=== PATIENT | female | born 1985 | race Caucasian/White ===

== ENCOUNTER → 2019-07-25 | Outpatient (CLI) | payer OTHER, SELFPAY ==
[2017-02-23 16:00] VITALS: BMI 23.7
[2019-07-31 18:10] LABS: HPV APTIMA, High Risk Negative (Negative)
== END | disposition home or self-care (01) ==
LOC: LABSPEC 14:49
PROVIDERS: Referring Provider Obstetrics & Gynecology; Visit Provider Obstetrics & Gynecology
DX: Z12.4 Encounter for screening for malignant neoplasm of cervix (principal)
CPT/HCPCS: 87624; 88175; G0145

== ENCOUNTER → 2021-03-14 09:48 | Outpatient (CLI) | payer OTHER, SELFPAY ==
[2021-03-14 11:50] LABS: Estradiol 117.6 pg/mL
[2021-03-14 11:54] LABS: Progesterone Level 2.03 ng/mL (See Comment)
[2021-03-15 08:05] LABS: Sex Hormone-binding Globulin 33.9 nmol/L (24.6-122.0)
== END ==
PROVIDERS: Visit Provider Obstetrics & Gynecology
DX: E28.1 Androgen excess (principal); N92.6 Irregular menstruation, unspecified
CPT/HCPCS: 36415; 82533; 82627; 82670; 84144; 84270; 84403; 82626